=== PATIENT | male | born 1990 | race Caucasian/White ===

== ENCOUNTER 2019-01-14 19:10 | Emergency (ER) | payer SELFPAY | END 2019-01-14 20:18 | disposition home or self-care (01) | LOC: ERS 19:10 | DX: F41.0 Panic disorder [episodic paroxysmal anxiety] (principal); F17.210 Nicotine dependence, cigarettes, uncomplicated; J45.909 Unspecified asthma, uncomplicated; F31.9 Bipolar disorder, unspecified; Z79.899 Other long term (current) drug therapy | CPT/HCPCS: 99282 ==

== ENCOUNTER 2019-02-11 21:57 | Emergency (ER) | payer SELFPAY | END 2019-02-11 22:58 | disposition home or self-care (01) | LOC: ERS 21:57 | DX: R11.0 Nausea (principal); J45.909 Unspecified asthma, uncomplicated; F41.9 Anxiety disorder, unspecified; F17.210 Nicotine dependence, cigarettes, uncomplicated; F31.9 Bipolar disorder, unspecified; Z79.899 Other long term (current) drug therapy | CPT/HCPCS: 99281 ==

== ENCOUNTER 2019-02-12 21:05 | Emergency (ER) | payer SELFPAY | END 2019-02-12 22:20 | disposition home or self-care (01) | LOC: ERS 21:05 | DX: F41.9 Anxiety disorder, unspecified (principal); F31.9 Bipolar disorder, unspecified; K50.90 Crohn's disease, unspecified, without complications; F17.210 Nicotine dependence, cigarettes, uncomplicated; Z71.6 Tobacco abuse counseling; Z79.899 Other long term (current) drug therapy | CPT/HCPCS: 99406 ==

== ENCOUNTER 2019-03-20 22:00 | Emergency (ER) | payer SELFPAY | END 2019-03-20 23:33 | disposition home or self-care (01) | LOC: ERS 22:00 | DX: R11.10 Vomiting, unspecified (principal); J45.909 Unspecified asthma, uncomplicated; F17.210 Nicotine dependence, cigarettes, uncomplicated; F31.9 Bipolar disorder, unspecified; Z79.899 Other long term (current) drug therapy | CPT/HCPCS: 99281 ==

== ENCOUNTER 2019-04-22 22:09 | Emergency (ER) | payer SELFPAY | END 2019-04-22 22:45 | disposition home or self-care (01) | LOC: ERS 22:09 | DX: R11.2 Nausea with vomiting, unspecified (principal); J45.909 Unspecified asthma, uncomplicated; F41.9 Anxiety disorder, unspecified; F31.9 Bipolar disorder, unspecified; F17.210 Nicotine dependence, cigarettes, uncomplicated; Z79.899 Other long term (current) drug therapy | CPT/HCPCS: 99281 ==

== ENCOUNTER 2019-08-11 21:25 | Emergency (ER) | payer SELFPAY | END 2019-08-11 22:00 | disposition home or self-care (01) | LOC: ERS 21:25 | DX: R11.2 Nausea with vomiting, unspecified (principal); R19.7 Diarrhea, unspecified; J45.909 Unspecified asthma, uncomplicated; F31.9 Bipolar disorder, unspecified; F41.9 Anxiety disorder, unspecified; F17.210 Nicotine dependence, cigarettes, uncomplicated; Z79.899 Other long term (current) drug therapy | CPT/HCPCS: 99283 ==

== ENCOUNTER 2019-12-18 16:22 | Emergency (ER) | payer SELFPAY ==
[2019-12-18] MEDS ORDERED: Ketorolac Tromethamine 30 MG/ML VIAL ONE (18:32)
--- NOTE | 2019-12-18 18:32 | RAD ---
3 views of the thoracic spine INDICATION: Back pain after moving furniture COMPARISON: None FINDINGS: No acute fracture or subluxation is evident. Spinal alignment is preserved. Visualized lung s are clear. IMPRESSION: No acute osseous abnormality.
== END 2019-12-18 19:24 | disposition home or self-care (01) ==
LOC: ERS 16:22
DX: M54.6 Pain in thoracic spine (principal); J45.909 Unspecified asthma, uncomplicated; F17.210 Nicotine dependence, cigarettes, uncomplicated; F41.9 Anxiety disorder, unspecified; F31.9 Bipolar disorder, unspecified; Z79.899 Other long term (current) drug therapy
CPT/HCPCS: 72072; 96372; J1885

== ENCOUNTER 2020-11-03 22:56 | Emergency (ER) | payer SELFPAY ==
--- NOTE | 2020-11-04 08:12 | ULT ---
PRELIMINARY REPORT/[facility]/EMERGENCY AFTER HOURS PROCEDURE: FINAL REPORT EMERGENT AFTER HOURS TESTICULAR ULTRASOUND: COMPARISON: None. FINDINGS/IMPRESSION: I agree with the findings and impression given in the preliminary report per [facility]. 1. There is a small amount of fluid in both sides of the scrotum which may be physiologic. 2. Small epididymal cysts. 3. There is flow seen adjacent to the testicles on both sides. However, this does not measure large enough to be considered a varicocele at this time. POS: [facility]
== END 2020-11-04 01:01 | disposition home or self-care (01) ==
LOC: ERS 22:56
DX: N50.89 Other specified disorders of the male genital organs (principal); K59.00 Constipation, unspecified; J45.909 Unspecified asthma, uncomplicated; F17.210 Nicotine dependence, cigarettes, uncomplicated
CPT/HCPCS: 76870; 93976